=== PATIENT | male | born 1980 | race Caucasian/White ===

== ENCOUNTER 2018-08-03 00:32 | Emergency (ER) | payer OTHER ==
[~2018-08-03] VITALS: Ht 175.3 cm; Wt 99.8 kg
[2018-08-03] MEDS ORDERED: PRINIVIL20 M1 PO (00:43)
[2018-08-03] MEDS ORDERED: HYDROCHLOROTH12.5 M1 PO (00:44)
[2018-08-03] MEDS ORDERED: PAXIL40 MG PO (00:44)
[2018-08-03] MEDS ORDERED: INDOMETHACIN 2525 MG PO (01:59)
[2018-08-03] MEDS ORDERED: PERCOCET 7.5-31 EACH PO (01:59)
[2018-08-03] MEDS ORDERED: PREDNISONE50 MG PO (02:00)
[2018-08-03 02:19] VITALS: BP 147/94
== END 2018-08-03 02:17 | disposition home or self-care (01) ==
LOC: M.ERS 00:32
DX: M79.675 Pain in left toe(s) (principal)

== ENCOUNTER 2018-10-20 18:50 | Emergency (ER) | payer OTHER ==
[~2018-10-20] VITALS: Ht 175.3 cm; Wt 97.5 kg
[~2018-10-20 18:50] MED LIST: HYDROCHLOROTH12.5 M1 PO; INDOMETHACIN 2525 MG PO; PAXIL40 MG PO; PERCOCET 7.5-31 EACH PO; PREDNISONE50 MG PO; PRINIVIL20 M1 PO
[2018-10-20] MEDS ORDERED: ATIVAN1 MG (19:05)
[2018-10-20] MEDS ORDERED: HYDROCODONE-AP1 EAC6 PO (20:12)
[2018-10-20] MEDS ORDERED: IBUPROFEN 800800 MG PO (20:12)
[2018-10-20] MEDS ORDERED: ROBAXIN 750 MG750 M1 PO (20:12)
[2018-10-20 20:24] VITALS: BP 144/94
== END 2018-10-20 20:25 | disposition home or self-care (01) ==
LOC: M.ERS 18:50
DX: M25.512 Pain in left shoulder (principal); M54.5 Low back pain; I10 Essential (primary) hypertension; F41.9 Anxiety disorder, unspecified; M10.9 Gout, unspecified; F17.210 Nicotine dependence, cigarettes, uncomplicated; V49.9XXA Car occupant (driver) (passenger) injured in unspecified traffic accident, initial encounter; Y93.89 Activity, other specified; Y92.89 Other specified places as the place of occurrence of the external cause; Y99.8 Other external cause status

== ENCOUNTER 2018-11-20 01:01 | Emergency (ER) | payer OTHER ==
[~2018-11-20] VITALS: Ht 175.3 cm; Wt 97.5 kg
[~2018-11-20 01:01] MED LIST changes: +ATIVAN1 MG; +HYDROCODONE-AP1 EAC6 PO; +IBUPROFEN 800800 MG PO; +ROBAXIN 750 MG750 M1 PO
[2018-11-20 01:08] VITALS: BP 160/105
[2018-11-20] MEDS ORDERED: NORCO 5-325 TA1 EACH PO (01:27)
[2018-11-20] MEDS ORDERED: PREDNISONE 20 M20 M1 PO (01:27)
== END 2018-11-20 01:47 | disposition home or self-care (01) ==
LOC: M.ERS 01:01
DX: M10.072 Idiopathic gout, left ankle and foot (principal); F17.200 Nicotine dependence, unspecified, uncomplicated; I10 Essential (primary) hypertension; F41.9 Anxiety disorder, unspecified

== ENCOUNTER 2019-06-05 17:46 | Emergency (ER) | payer OTHER ==
[~2019-06-05] VITALS: Ht 175.3 cm; Wt 79.4 kg
[~2019-06-05 17:46] MED LIST changes: +NORCO 5-325 TA1 EACH PO; +PREDNISONE 20 M20 M1 PO
[2019-06-05] MEDS ORDERED: CLEOCIN HCL300 MG PO (17:56)
[2019-06-05 18:21] VITALS: BP 138/94
== END 2019-06-05 18:21 | disposition home or self-care (01) ==
LOC: M.ERS 17:46
DX: S02.5XXA Fracture of tooth (traumatic), initial encounter for closed fracture (principal); K02.9 Dental caries, unspecified; K04.7 Periapical abscess without sinus; I10 Essential (primary) hypertension; F41.9 Anxiety disorder, unspecified; M10.9 Gout, unspecified; X58.XXXA Exposure to other specified factors, initial encounter; Y93.89 Activity, other specified; Y92.89 Other specified places as the place of occurrence of the external cause; Y99.8 Other external cause status

== ENCOUNTER 2019-06-09 21:12 | Emergency (ER) | payer OTHER ==
[~2019-06-09] VITALS: Ht 175.3 cm; Wt 97.5 kg
[~2019-06-09 21:12] MED LIST changes: +CLEOCIN HCL300 MG PO
[2019-06-09] MEDS ORDERED: MEDROLDOSEPACK PO (21:30)
[2019-06-09] MEDS ORDERED: HYDROCHLOROTH12.5 M1 PO (21:30)
[2019-06-09 22:12] LABS: ABSOLUTE BASOPHILS 0.1 thou/uL (0.0-0.2); ABSOLUTE LYMPHOCYTES 1.7 thou/uL (0.8-5.3); ABSOLUTE MONOCYTES 1.3 thou/uL (0.0-1.2); ABSOLUTE NEUTROPHILS 14.7 thou/uL (1.6-8.1); BASOPHILS 0.5 %; EOSINOPHILS 0.2 %; HEMATOCRIT 39.1 % (42.0-52.0); HEMOGLOBIN 13.6 gm/dL (14.0-18.0); LYMPHOCYTES 9.6 %; MCH 31.9 pg (26.0-34.0); MCHC 34.8 g/dL (28.0-37.0); MCV 91.7 fL (80.0-100.0); MONOCYTES 7.1 %; MPV 6.7 fl. (7.2-11.1); NUCLEATED RBCS 0 /100WBC; PLATELET COUNT* 370 thou/uL (150-400); POLYS 82.6 %; RBC 4.27 mil/uL (4.50-6.00); RDW-CV 12.5 % (10.5-14.5); WBC 17.8 thou/uL (4.0-11.0)
[2019-06-09 22:18] LABS: CALCIUM 9.3 mg/dL (8.5-10.1); CREATININE 0.8 mg/dL (0.6-1.3); POTASSIUM 3.1 mmol/L (3.5-5.1)
[2019-06-09 22:23] LABS: ALBUMIN 3.7 g/dL (3.4-5.0); TOTAL BILIRUBIN 0.4 mg/dL (<0.1-1.0); TOTAL PROTEIN 8.1 g/dL (6.4-8.2)
[2019-06-09] MEDS ORDERED: NORCO 5-325 TA1 EAC1 PO ×2 (23:12→23:14)
[2019-06-09] MEDS ORDERED: IBUPROFEN 800800 M1 PO (23:14)
[2019-06-09 23:30] VITALS: BP 130/81
== END 2019-06-09 23:30 | disposition home or self-care (01) ==
LOC: M.ERS 21:12
PROVIDERS: Nurse Practitioner Family
DX: K04.7 Periapical abscess without sinus (principal); E87.6 Hypokalemia; I10 Essential (primary) hypertension; F41.9 Anxiety disorder, unspecified; M10.9 Gout, unspecified